=== PATIENT | female | born 1950 | race Caucasian/White ===

== ENCOUNTER 2017-01-25 00:36 | Inpatient (IN) | payer MEDICARE ==
[2017-01-25] VITALS (16 sets, daily range): BP systolic 168–231; BP diastolic 78–113
[~2017-01-25] VITALS: Ht 157.5 cm; Wt 82.7 kg
[~2017-01-25 00:36] MED LIST: AMLODIPINE5 MG PO; LISINOPRIL/HCTZ1 TA1 PO; LOPRESSOR25 MG PO; NORCO 325 MG-51 TAB PO; NORCO 5-325 TA1 EACH PO
[2017-01-25 00:59] LABS: BASO # 0.1 10*3/uL (0.0-0.1); BASO % 0.4 % (0.0-1.0); EOS # 0.1 10*3/uL (0.0-0.4); EOS % 0.5 % (1.0-4.0); HEMATOCRIT 46.2 % (37.0-47.0); HEMOGLOBIN 15.1 g/dl (12.0-16.0); LYMPH # 3.2 10*3/uL (1.3-4.4); LYMPH % 26.1 % (27.0-41.0); MEAN CELL VOLUME 89.2 fl (81.0-99.0); MEAN CORPUSCULAR HGB 29.2 pg (27.0-31.0); MEAN CORPUSCULAR HGB CONC 32.7 g/dl (33.0-37.0); MEAN PLATELET VOLUME 11.7 fl (9.6-12.3); MONO # 0.6 10*3/uL (0.1-1.0); MONO % 4.7 % (3.0-9.0); NEUT # 8.3 10*3/uL (2.3-7.9); NEUT % 68.1 % (47.0-73.0); PLATELET COUNT AUTOMATED 144 10*3/uL (130-400); RED BLOOD COUNT 5.18 10*6/uL (4.10-5.10); RED CELL DISTRI WIDTH 14.2 % (0-14.5); WHITE BLOOD COUNT 12.2 10*3/uL (4.8-10.8)
[2017-01-25 01:15] LABS: ALBUMIN 3.7 gm/dl (3.1-4.5); ALKALINE PHOSPHATASE 79 U/L (45-117); BUN 14 mg/dl (7-24); CARBON DIOXIDE 26 mmol/L (21-32); CHLORIDE 107 mmol/L (98-107); CPK 76 U/L (26-192); EST GLOM FILT AFRICAN AMERICAN > 60 ml/min; GLUCOSE 137 mg/dL (65-99); LDH 220 U/L (84-246); MAGNESIUM 1.7 mg/dL (1.5-2.1); POTASSIUM 3.6 mmol/L (3.5-5.1); SGOT/AST 56 IU/L (3-35); SGPT/ALT 92 U/L (12-78); SODIUM 145 mmol/L (136-145); TOTAL PROTEIN 7.7 gm/dL (6.4-8.2); TROPONIN I 0.029 ng/ml (<0.045)
[2017-01-25 01:20] LABS: BILIRUBIN, TOTAL 0.4 mg/dl (0.2-1.0)
[2017-01-25 01:30] LABS: PROTHROMBIN TIME 10.7 SECONDS (9.0-12.4)
[2017-01-25 06:09] LABS: BASO # 0.1 10*3/uL (0.0-0.1); BASO % 0.5 % (0.0-1.0); EOS % 0.2 % (1.0-4.0); HEMATOCRIT 43.4 % (37.0-47.0); HEMOGLOBIN 14.4 g/dl (12.0-16.0); LYMPH # 2.1 10*3/uL (1.3-4.4); LYMPH % 19.4 % (27.0-41.0); MEAN CELL VOLUME 88.9 fl (81.0-99.0); MEAN CORPUSCULAR HGB 29.5 pg (27.0-31.0); MEAN CORPUSCULAR HGB CONC 33.2 g/dl (33.0-37.0); MEAN PLATELET VOLUME 11.7 fl (9.6-12.3); MONO # 0.5 10*3/uL (0.1-1.0); MONO % 4.4 % (3.0-9.0); NEUT # 8.2 10*3/uL (2.3-7.9); NEUT % 75.1 % (47.0-73.0); PLATELET COUNT AUTOMATED 131 10*3/uL (130-400); RED BLOOD COUNT 4.88 10*6/uL (4.10-5.10); RED CELL DISTRI WIDTH 14.3 % (0-14.5)
[2017-01-25 06:24] LABS: BUN 11 mg/dl (7-24); CARBON DIOXIDE 29 mmol/L (21-32); CHLORIDE 107 mmol/L (98-107); EST GLOM FILT AFRICAN AMERICAN > 60 ml/min; GLUCOSE 120 mg/dL (65-99); MAGNESIUM 1.6 mg/dL (1.5-2.1); POTASSIUM 3.5 mmol/L (3.5-5.1); SODIUM 143 mmol/L (136-145)
[2017-01-25 06:28] LABS: CKMB 1.9 ng/ml (0.5-3.6); TROPONIN I 0.043 ng/ml (<0.045)
[2017-01-25 06:29] LABS: CHOLESTEROL 153 mg/dL (<200); FREE T4 1.08 ng/dl (0.76-1.46); HDL CHOLESTEROL 56 mg/dl (40-60); LDL CHOLESTEROL 84 mg/dL (9-159); PHOSPHOROUS 2.6 mg/dL (2.5-4.9); TRIGLYCERIDES 65 mg/dl (<150); VLDL CHOLESTEROL 13 mg/dL (6-40)
[2017-01-25 06:35] LABS: INTERNATIONAL NORM RATIO 1.1 (2.0-3.5); PROTHROMBIN TIME 11.3 SECONDS (9.0-12.4); THYROID STIM HORMONE (HS) 0.568 uIU/ml (0.358-4.75)
[2017-01-25 08:12] LABS: VITAMIN D, 25-HYDROXY 13.9 ng/mL (30-100)
[2017-01-25 08:46] LABS: FOLIC ACID > 24.00 ng/mL (>5.38)
[2017-01-25 12:09] LABS: CKMB 1.9 ng/ml (0.5-3.6)
[2017-01-25 12:12] LABS: TROPONIN I 0.052 ng/ml (<0.045)
[2017-01-25 16:10] LABS: BASO % 0.4 % (0.0-1.0); EOS % 0.2 % (1.0-4.0); HEMATOCRIT 41.6 % (37.0-47.0); HEMOGLOBIN 13.9 g/dl (12.0-16.0); LYMPH # 2.2 10*3/uL (1.3-4.4); LYMPH % 22.2 % (27.0-41.0); MEAN CELL VOLUME 88.1 fl (81.0-99.0); MEAN CORPUSCULAR HGB 29.4 pg (27.0-31.0); MEAN CORPUSCULAR HGB CONC 33.4 g/dl (33.0-37.0); MEAN PLATELET VOLUME 11.5 fl (9.6-12.3); MONO # 0.6 10*3/uL (0.1-1.0); MONO % 6.4 % (3.0-9.0); NEUT % 70.5 % (47.0-73.0); PLATELET COUNT AUTOMATED 130 10*3/uL (130-400); RED BLOOD COUNT 4.72 10*6/uL (4.10-5.10); RED CELL DISTRI WIDTH 14.4 % (0-14.5); WHITE BLOOD COUNT 9.9 10*3/uL (4.8-10.8)
[2017-01-25 16:25] LABS: ALBUMIN 3.3 gm/dl (3.1-4.5); ALKALINE PHOSPHATASE 70 U/L (45-117); BILIRUBIN, TOTAL 0.6 mg/dl (0.2-1.0); BUN 12 mg/dl (7-24); CARBON DIOXIDE 26 mmol/L (21-32); CHLORIDE 108 mmol/L (98-107); EST GLOM FILT AFRICAN AMERICAN > 60 ml/min; GLUCOSE 107 mg/dL (65-99); POTASSIUM 3.3 mmol/L (3.5-5.1); SGOT/AST 30 IU/L (3-35); SGPT/ALT 69 U/L (12-78); SODIUM 143 mmol/L (136-145)
[2017-01-25 18:29] LABS: CKMB 1.6 ng/ml (0.5-3.6); TROPONIN I 0.044 ng/ml (<0.045)
[2017-01-26] VITALS: BP 176/81
[2017-01-26 03:57] VITALS: BP 164/80
[2017-01-26 08:00] VITALS: BP 156/81; BP 170/80
[2017-01-26 12:00] VITALS: BP 150/82
[2017-01-26 16:00] VITALS: BP 160/84
[2017-01-26 21:00] VITALS: BP 188/82
[2017-01-27] VITALS: BP 180/66
[2017-01-27 08:00] VITALS: BP 156/70
[2017-01-27] MEDS ORDERED: DOXYCYCLINE100 M3 PO (10:27)
[2017-01-27] MEDS ORDERED: D-1000 185 MG-11 TAB PO (10:27)
[2017-01-27] MEDS ORDERED: PREDNISONE10 MG PO (10:27)
[2017-01-27] MEDS ORDERED: LISINOPRIL20 MG PO (10:27)
== END 2017-01-27 10:46 | disposition home or self-care (01) | DRG 871 ==
LOC: ED 00:36 → EDHOLD 03:44 → 4E 03:44
PROVIDERS: Internal Medicine; Physician Assistant
DX: A41.9 Sepsis, unspecified organism (principal); J18.9 Pneumonia, unspecified organism; J96.01 Acute respiratory failure with hypoxia; I16.1 Hypertensive emergency; I10 Essential (primary) hypertension; E55.9 Vitamin D deficiency, unspecified; R59.1 Generalized enlarged lymph nodes; F17.200 Nicotine dependence, unspecified, uncomplicated; Z60.2 Problems related to living alone; R00.0 Tachycardia, unspecified; D72.829 Elevated white blood cell count, unspecified; E66.09 Other obesity due to excess calories; Z90.710 Acquired absence of both cervix and uterus; Z85.41 Personal history of malignant neoplasm of cervix uteri; Z71.6 Tobacco abuse counseling; Z72.89 Other problems related to lifestyle; Z82.49 Family history of ischemic heart disease and other diseases of the circulatory system; Z68.34 Body mass index [BMI] 34.0-34.9, adult; Z80.9 Family history of malignant neoplasm, unspecified

== ENCOUNTER → 2017-06-01 | Outpatient (CLI) | payer MEDICARE ==
[~2017-06-01] MED LIST changes: +D-1000 185 MG-11 TAB PO; +DOXYCYCLINE100 M3 PO; +LISINOPRIL20 MG PO; +PREDNISONE10 MG PO
== END | disposition home or self-care (01) ==
LOC: US 10:30
DX: I10 Essential (primary) hypertension (principal)

== ENCOUNTER → 2017-07-01 | Outpatient (CLI) | payer MEDICARE ==
[~2017-07-01] MED LIST changes: +AMLODIPINE BESY10 MG PO; +CARVEDILOL6.25 MG PO; +LOSARTAN-HCTZ1 EAC2 PO
== END | disposition home or self-care (01) ==
LOC: MAMMO 06-04 10:20
DX: Z12.31 Encounter for screening mammogram for malignant neoplasm of breast (principal)

== ENCOUNTER → 2017-07-03 | Day surgery (SDC) | payer MEDICARE ==
[~2017-07-03] VITALS: Ht 157.4 cm; Wt 83.9 kg
--- NOTE | ~2017-07-03 | PROC NOTE ---
[place], [place] PROCEDURE NOTE NAME: [facility] [id number] UNIT #: [id number] ROOM: DOCTOR: ARMANDO SHAFFER MD BIRTHDATE: [birth year] DOS: 07/03/2017 PREOPERATIVE DIAGNOSIS: Positive cologuard test. POSTOPERATIVE DIAGNOSIS: Colon polyps x 2 (15 cm, 30 cm). PROCEDURE: Colonoscopy with polypectomy x 2. ENDOSCOPIST: Armando Shaffer MD MEDICAL LOGISTICS SPECIALIST: RUTH ANN. ANESTHESIA: MAC. INDICATIONS: This is a 66-year-old lady who had a positive cologuard done as an outpatient, who is here for the above-mentioned procedure. The procedure and its complications were explained to the patient in detail preoperatively. Complications that were discussed included but were not limited to bleeding, missed lesions, colon perforation and she agreed to proceed. DESCRIPTION OF PROCEDURE: After identifying the patient, the patient was brought to the endoscopy suite and placed in the left lateral position. After IV sedation was administered, a timeout procedure was called and a digital rectal exam was performed. This was within normal limits. An adult colonoscope was now introduced into the anal canal and advanced sequentially into the rectum, descending colon, ascending colon, transverse colon and up to the cecum. At which point, the scope was then withdrawn. Total withdrawal time was approximately 8 minutes and 30 seconds. During the procedure withdrawal, there were 2 polyps that were polypectomized with the help of a snare at 30 cm and at 15 cm and these 2 polyps were sent for histopathological diagnosis. The biopsy sites were again visualized and there was no bleeding seen. The scope was then withdrawn. The patient was taken to the recovery room in stable fashion. There were no complications. Based on these findings, the patient is recommended to have another colonoscopy in the next 1-3 years or sooner if she has any new symptoms. Armando Shaffer MD CM:PROCNOTE:PROCEDURE NOTE [id number] ARMANDO SHAFFER MD
[2017-07-03 08:00] VITALS: BP 180/69
[2017-07-03 09:24] VITALS: BP 117/64
[2017-07-03 09:39] VITALS: BP 142/64
[2017-07-03 09:54] VITALS: BP 161/77
== END | disposition home or self-care (01) ==
LOC: SDC 06-30 08:00
DX: D12.8 Benign neoplasm of rectum (principal); I10 Essential (primary) hypertension; Z82.49 Family history of ischemic heart disease and other diseases of the circulatory system; Z90.710 Acquired absence of both cervix and uterus; Z90.49 Acquired absence of other specified parts of digestive tract; F17.200 Nicotine dependence, unspecified, uncomplicated

== ENCOUNTER → 2018-02-11 | Outpatient (CLI) | payer MEDICARE | END | disposition home or self-care (01) | LOC: RAD 15:21 | DX: M54.5 Low back pain (principal) ==

== ENCOUNTER 2018-12-11 10:01 | Emergency (ER) | payer MEDICARE ==
[~2018-12-11] VITALS: Ht 157.4 cm; Wt 81.6 kg
[2018-12-11] MEDS ORDERED: NORCO 5-325 TA1 EACH PO (11:56)
[2018-12-11] MEDS ORDERED: WALKER (12:08)
== END 2018-12-11 12:04 | disposition home or self-care (01) ==
LOC: ED 10:01
DX: S82.832A Other fracture of upper and lower end of left fibula, initial encounter for closed fracture (principal); M25.552 Pain in left hip; F17.200 Nicotine dependence, unspecified, uncomplicated; I10 Essential (primary) hypertension; E66.9 Obesity, unspecified; Z79.899 Other long term (current) drug therapy; W01.0XXA Fall on same level from slipping, tripping and stumbling without subsequent striking against object, initial encounter; Y93.01 Activity, walking, marching and hiking; Y92.89 Other specified places as the place of occurrence of the external cause; Y99.8 Other external cause status

== ENCOUNTER → 2018-12-31 | Outpatient (CLI) | payer MEDICARE ==
[~2018-12-31] MED LIST changes: +WALKER
== END | disposition home or self-care (01) ==
LOC: ORTHO 00:56
DX: S82.832D Other fracture of upper and lower end of left fibula, subsequent encounter for closed fracture with routine healing (principal); X58.XXXD Exposure to other specified factors, subsequent encounter

== ENCOUNTER → 2019-05-05 | Outpatient (CLI) | payer MEDICARE | END | disposition home or self-care (01) | LOC: MRI 09:29 | DX: M65.872 Other synovitis and tenosynovitis, left ankle and foot (principal); M79.9 Soft tissue disorder, unspecified; M77.9 Enthesopathy, unspecified ==

== ENCOUNTER → 2019-11-26 | Outpatient (CLI) | payer MEDICARE ==
[2019-11-26 14:23] LABS: BASO # 0.1 10*3/uL (0.0-0.1); BASO % 0.6 % (0.0-1.0); EOS # 0.2 10*3/uL (0.0-0.4); EOS % 2.1 % (1.0-4.0); HEMATOCRIT 47.9 % (37.0-47.0); LYMPH # 2.9 10*3/uL (1.3-4.4); LYMPH % 30.8 % (27.0-41.0); MEAN CELL VOLUME 90.5 fl (81.0-99.0); MEAN CORPUSCULAR HGB 29.7 pg (27.0-31.0); MEAN CORPUSCULAR HGB CONC 32.8 g/dl (33.0-37.0); MEAN PLATELET VOLUME 11.4 fl (9.6-12.3); MONO # 0.8 10*3/uL (0.1-1.0); MONO % 8.4 % (3.0-9.0); NEUT # 5.4 10*3/uL (2.3-7.9); NEUT % 57.8 % (47.0-73.0); PLATELET COUNT AUTOMATED 190 10*3/uL (130-400); RED BLOOD COUNT 5.29 10*6/uL (4.10-5.10); RED CELL DISTRI WIDTH 13.5 % (0-14.5); WHITE BLOOD COUNT 9.4 10*3/uL (4.8-10.8)
[2019-11-26 14:31] LABS: BILIRUBIN NEGATIVE (NEGATIVE); BLOOD NEGATIVE (NEGATIVE); CLARITY SL CLOUDY (CLEAR); COLOR YELLOW (YELLOW); GLUCOSE NEGATIVE (NEGATIVE); KETONE NEGATIVE (NEGATIVE); LEUKO ESTERASE NEGATIVE (NEGATIVE); NITRITE NEGATIVE (NEGATIVE); UROBILINOGEN 0.2 E.U./dl (0.2-1.0)
[2019-11-26 14:34] LABS: FINE GRANULAR CAST 0-2
[2019-11-26 14:35] LABS: RBC 0-2 rbc/hpf (0-2)
[2019-11-26 14:35] LABS: ACT PARTIAL THROMBO TIME 26.9 SECONDS (20.0-32.1); INTERNATIONAL NORM RATIO 0.9 (2.0-3.5)
[2019-11-26 14:36] LABS: BACTERIA 3+
[2019-11-26 14:39] LABS: ALBUMIN 3.6 gm/dl (3.1-4.5); CREATININE 1.3 mg/dL (0.55-1.02); POTASSIUM 4.3 mmol/L (3.5-5.1); TOTAL PROTEIN 7.7 gm/dL (6.4-8.2)
== END | disposition home or self-care (01) ==
LOC: LAB 13:45
PROVIDERS: Orthopaedic Surgery
DX: Z01.812 Encounter for preprocedural laboratory examination (principal); R06.02 Shortness of breath; M19.90 Unspecified osteoarthritis, unspecified site; I10 Essential (primary) hypertension; Z79.899 Other long term (current) drug therapy

== ENCOUNTER → 2020-03-19 | Outpatient (CLI) | payer MEDICARE | END | disposition home or self-care (01) | LOC: MAMMO 13:31 | DX: Z12.31 Encounter for screening mammogram for malignant neoplasm of breast (principal) ==

== ENCOUNTER → 2020-09-03 | Outpatient (CLI) | payer MEDICARE | END | disposition home or self-care (01) | LOC: RAD 11:32 | PROVIDERS: ATTEND Physician Assistant | DX: J44.9 Chronic obstructive pulmonary disease, unspecified (principal); K21.9 Gastro-esophageal reflux disease without esophagitis; F17.210 Nicotine dependence, cigarettes, uncomplicated ==

== ENCOUNTER → 2020-09-07 | Outpatient (CLI) | payer MEDICARE ==
[2020-09-07 14:35] LABS: CREATININE 0.89 mg/dL (0.55-1.02)
== END | disposition home or self-care (01) ==
LOC: LAB 13:43 → CT 14:00
PROVIDERS: ATTEND Physician Assistant
DX: R93.89 Abnormal findings on diagnostic imaging of other specified body structures (principal); Z79.899 Other long term (current) drug therapy

== ENCOUNTER → 2020-09-17 | Outpatient (CLI) | payer MEDICARE | END | disposition home or self-care (01) | LOC: MRI 08:40 | PROVIDERS: ATTEND Physician Assistant | DX: R16.0 Hepatomegaly, not elsewhere classified (principal); J98.4 Other disorders of lung ==

== ENCOUNTER → 2020-11-29 | Outpatient (CLI) | payer MEDICARE | END | disposition home or self-care (01) | LOC: CT 13:00 | PROVIDERS: ATTEND Internal Medicine Critical Care Medicine | DX: J98.11 Atelectasis (principal); R91.1 Solitary pulmonary nodule; J41.1 Mucopurulent chronic bronchitis; Z87.891 Personal history of nicotine dependence; Z23 Encounter for immunization ==

== ENCOUNTER → 2020-12-26 | Outpatient (CLI) | payer MEDICARE | END | disposition home or self-care (01) | LOC: RAD 10:03 | PROVIDERS: ATTEND Orthopaedic Surgery | DX: Z01.818 Encounter for other preprocedural examination (principal); I25.10 Atherosclerotic heart disease of native coronary artery without angina pectoris; I10 Essential (primary) hypertension; M19.90 Unspecified osteoarthritis, unspecified site ==

== ENCOUNTER → 2021-03-27 | Outpatient (CLI) | payer MEDICARE | END | disposition home or self-care (01) | LOC: MAMMO 11:22 | PROVIDERS: ATTEND Physician Assistant | DX: Z12.31 Encounter for screening mammogram for malignant neoplasm of breast (principal) ==

== ENCOUNTER → 2021-04-10 | Outpatient (CLI) | payer MEDICARE | END | disposition home or self-care (01) | LOC: MAMMO 08:55 | PROVIDERS: ATTEND Physician Assistant | DX: R92.8 Other abnormal and inconclusive findings on diagnostic imaging of breast (principal) ==

== ENCOUNTER → 2021-05-07 | Outpatient (CLI) | payer MEDICARE ==
[2021-05-07 12:51] LABS: ACT PARTIAL THROMBO TIME 25.1 SECONDS (20.0-32.1)
== END | disposition home or self-care (01) ==
LOC: SDC 00:58 → MAMMO 13:30
PROVIDERS: ATTEND Physician Assistant
DX: R92.8 Other abnormal and inconclusive findings on diagnostic imaging of breast (principal); I10 Essential (primary) hypertension; M19.90 Unspecified osteoarthritis, unspecified site; K21.9 Gastro-esophageal reflux disease without esophagitis; F17.210 Nicotine dependence, cigarettes, uncomplicated; J98.4 Other disorders of lung; J44.9 Chronic obstructive pulmonary disease, unspecified; Z90.710 Acquired absence of both cervix and uterus; Z96.649 Presence of unspecified artificial hip joint; Z96.659 Presence of unspecified artificial knee joint; Z98.890 Other specified postprocedural states; Z79.899 Other long term (current) drug therapy; Z20.822 Contact with and (suspected) exposure to COVID-19

== ENCOUNTER → 2021-05-15 | Outpatient (CLI) | payer MEDICARE ==
[2021-05-15 14:38] LABS: CREATININE 0.88 mg/dL (0.55-1.02)
== END | disposition home or self-care (01) ==
LOC: LAB 14:03
PROVIDERS: ATTEND Surgery
DX: K21.9 Gastro-esophageal reflux disease without esophagitis (principal)

== ENCOUNTER → 2021-05-17 | Outpatient (CLI) | payer MEDICARE | LOC: CT 00:04 | PROVIDERS: ATTEND Surgery | DX: I70.8 Atherosclerosis of other arteries (principal); K21.9 Gastro-esophageal reflux disease without esophagitis; R10.9 Unspecified abdominal pain ==

== ENCOUNTER → 2021-06-13 | Day surgery (SDC) | payer MEDICARE ==
[~2021-06-13] VITALS: Ht 154.9 cm; Wt 90.7 kg
[2021-06-13 07:03] VITALS: BP 178/76
[2021-06-13 08:04] VITALS: BP 121/60
[2021-06-13 08:19] VITALS: BP 133/77
[2021-06-13 08:29] VITALS: BP 156/72
== END | disposition home or self-care (01) ==
LOC: SDC 06-10 08:00
PROVIDERS: ATTEND Surgery
DX: Z12.11 Encounter for screening for malignant neoplasm of colon (principal); D12.2 Benign neoplasm of ascending colon; D12.8 Benign neoplasm of rectum; K29.50 Unspecified chronic gastritis without bleeding; Z86.010 Personal history of colon polyps; K21.9 Gastro-esophageal reflux disease without esophagitis; I10 Essential (primary) hypertension; M19.90 Unspecified osteoarthritis, unspecified site; F17.210 Nicotine dependence, cigarettes, uncomplicated; Z90.710 Acquired absence of both cervix and uterus; Z79.899 Other long term (current) drug therapy; Z20.822 Contact with and (suspected) exposure to COVID-19

== ENCOUNTER → 2021-06-19 | Outpatient (CLI) | payer MEDICARE | END | disposition home or self-care (01) | LOC: CT 07:47 | PROVIDERS: ATTEND Physician Assistant | DX: J98.11 Atelectasis (principal); R91.1 Solitary pulmonary nodule; I25.10 Atherosclerotic heart disease of native coronary artery without angina pectoris; J84.89 Other specified interstitial pulmonary diseases ==

== ENCOUNTER → 2022-04-22 | Outpatient (CLI) | payer MEDICARE ==
[~2022-04-22] MED LIST changes: +APRESOLINE10 MG PO; +ASPIRIN ADULT L81 M2 PO; +ATORVASTATIN CA40 M1 PO; +COREG12.5 M1 PO; +Carafate1 GM PO; +DOXYCYCLINE HY100 M3 PO; +FUROSEMIDE40 MG PO; +LETROZOLE2.5 M2 PO; +LISINOPRIL10 M1 PO; +OXYBUTYNIN5 MG PO; +PACERONE400 MG PO; +POTASSIUM CHLO20 ME4 PO
== END | disposition home or self-care (01) ==
LOC: RESCLI 01:10
PROVIDERS: ATTEND Internal Medicine
DX: J44.9 Chronic obstructive pulmonary disease, unspecified (principal); E55.9 Vitamin D deficiency, unspecified; C50.919 Malignant neoplasm of unspecified site of unspecified female breast; I48.91 Unspecified atrial fibrillation; I10 Essential (primary) hypertension; I21.3 ST elevation (STEMI) myocardial infarction of unspecified site; N39.3 Stress incontinence (female) (male); K21.9 Gastro-esophageal reflux disease without esophagitis; Z87.891 Personal history of nicotine dependence; Z90.710 Acquired absence of both cervix and uterus; Z98.890 Other specified postprocedural states; Z79.899 Other long term (current) drug therapy; Z79.01 Long term (current) use of anticoagulants

== ENCOUNTER → 2022-09-02 | Outpatient (CLI) | payer MEDICARE | END | disposition home or self-care (01) | LOC: LAB 09:16 | PROVIDERS: ATTEND Surgery | DX: K46.9 Unspecified abdominal hernia without obstruction or gangrene (principal) ==

== ENCOUNTER → 2022-09-04 | Outpatient (CLI) | payer MEDICARE | END | disposition home or self-care (01) | LOC: CT 00:54 | PROVIDERS: ATTEND Surgery | DX: K46.9 Unspecified abdominal hernia without obstruction or gangrene (principal); J18.9 Pneumonia, unspecified organism; I25.10 Atherosclerotic heart disease of native coronary artery without angina pectoris; K76.0 Fatty (change of) liver, not elsewhere classified; N20.0 Calculus of kidney; K76.89 Other specified diseases of liver; E27.9 Disorder of adrenal gland, unspecified ==

== ENCOUNTER 2022-11-19 20:02 | Emergency (ER) | payer MEDICARE ==
[~2022-11-19] VITALS: Ht 154.9 cm; Wt 61.2 kg
[2022-11-19] MEDS ORDERED: XARE20MG PO (20:14)
== END 2022-11-19 21:31 | disposition home or self-care (01) ==
LOC: ED 20:02
DX: S70.12XA Contusion of left thigh, initial encounter (principal); J44.9 Chronic obstructive pulmonary disease, unspecified; I25.2 Old myocardial infarction; K21.9 Gastro-esophageal reflux disease without esophagitis; F41.9 Anxiety disorder, unspecified; F32.A Depression, unspecified; I10 Essential (primary) hypertension; I48.91 Unspecified atrial fibrillation; Z96.651 Presence of right artificial knee joint; Z90.49 Acquired absence of other specified parts of digestive tract; Z90.710 Acquired absence of both cervix and uterus; Z98.890 Other specified postprocedural states; F17.200 Nicotine dependence, unspecified, uncomplicated; W22.8XXA Striking against or struck by other objects, initial encounter; Y93.89 Activity, other specified; Y92.89 Other specified places as the place of occurrence of the external cause; Y99.8 Other external cause status

== ENCOUNTER 2022-12-08 12:25 | Emergency (ER) | payer MEDICARE ==
[~2022-12-08] VITALS: Ht 154.9 cm; Wt 61.2 kg
[~2022-12-08 12:25] MED LIST changes: +XARE20MG PO
[2022-12-08] MEDS ORDERED: AMOX-CLAV 875-1 EACH PO (14:11)
== END 2022-12-08 14:16 | disposition home or self-care (01) ==
LOC: ED 12:25
DX: S01.112A Laceration without foreign body of left eyelid and periocular area, initial encounter (principal); I10 Essential (primary) hypertension; J44.9 Chronic obstructive pulmonary disease, unspecified; I25.2 Old myocardial infarction; K21.9 Gastro-esophageal reflux disease without esophagitis; F41.9 Anxiety disorder, unspecified; Z96.651 Presence of right artificial knee joint; Z90.12 Acquired absence of left breast and nipple; Z90.49 Acquired absence of other specified parts of digestive tract; Z90.710 Acquired absence of both cervix and uterus; Z98.890 Other specified postprocedural states; F17.200 Nicotine dependence, unspecified, uncomplicated; W55.03XA Scratched by cat, initial encounter; Y93.89 Activity, other specified; Y92.89 Other specified places as the place of occurrence of the external cause; Y99.8 Other external cause status

== ENCOUNTER → 2023-01-06 | Outpatient (CLI) | payer MEDICARE ==
[~2023-01-06] MED LIST changes: +AMOX-CLAV 875-1 EACH PO
== END | disposition home or self-care (01) ==
LOC: CT 01:23
PROVIDERS: ATTEND Surgery
DX: K43.9 Ventral hernia without obstruction or gangrene (principal); M48.061 Spinal stenosis, lumbar region without neurogenic claudication; N20.0 Calculus of kidney; E27.9 Disorder of adrenal gland, unspecified; M47.817 Spondylosis without myelopathy or radiculopathy, lumbosacral region

== ENCOUNTER → 2023-01-19 | Day surgery (SDC) | payer MEDICARE ==
[~2023-01-19] VITALS: Ht 152.4 cm; Wt 61.2 kg
[2023-01-19 08:00] VITALS: BP 187/68
[2023-01-19 08:46] VITALS: BP 164/66
[2023-01-19 09:01] VITALS: BP 150/43
[2023-01-19 09:16] VITALS: BP 162/56
== END ==
LOC: SDC 01-15 12:30
PROVIDERS: ATTEND Surgery
DX: R63.4 Abnormal weight loss (principal); D12.8 Benign neoplasm of rectum; I10 Essential (primary) hypertension; K21.9 Gastro-esophageal reflux disease without esophagitis; F32.A Depression, unspecified; F41.9 Anxiety disorder, unspecified; J44.9 Chronic obstructive pulmonary disease, unspecified; Z86.010 Personal history of colon polyps; Z98.818 Other dental procedure status; Z98.890 Other specified postprocedural states

== ENCOUNTER → 2023-03-09 | Outpatient (CLI) | payer MEDICARE | END | disposition home or self-care (01) | LOC: RAD 11:27 | PROVIDERS: ATTEND Physician Assistant | DX: Z78.0 Asymptomatic menopausal state (principal); Z96.642 Presence of left artificial hip joint ==

== ENCOUNTER → 2023-03-23 | Outpatient (CLI) | payer MEDICARE | END | disposition home or self-care (01) | LOC: RAD 01:12 | PROVIDERS: ATTEND Physician Assistant | DX: R16.0 Hepatomegaly, not elsewhere classified (principal); M85.88 Other specified disorders of bone density and structure, other site; M85.851 Other specified disorders of bone density and structure, right thigh ==

== ENCOUNTER 2023-04-02 23:01 | Emergency (ER) | payer MEDICARE ==
[~2023-04-02] VITALS: Ht 152.4 cm; Wt 55.3 kg
[2023-04-02 23:22] LABS: BASO % 0.3 % (0.0-1.0); EOS % 0.3 % (1.0-4.0); HEMATOCRIT 40.1 % (37.0-47.0); LYMPH # 2.3 10*3/uL (1.3-4.4); LYMPH % 20.4 % (27.0-41.0); MEAN CORPUSCULAR HGB 28.6 pg (27.0-31.0); MEAN CORPUSCULAR HGB CONC 33.7 g/dl (33.0-37.0); MEAN PLATELET VOLUME 10.6 fl (9.6-12.3); MONO # 0.8 10*3/uL (0.1-1.0); MONO % 6.9 % (3.0-9.0); NEUT # 8.3 10*3/uL (2.3-7.9); NEUT % 71.8 % (47.0-73.0); PLATELET COUNT AUTOMATED 186 10*3/uL (130-400); RED BLOOD COUNT 4.72 10*6/uL (4.10-5.10); RED CELL DISTRI WIDTH 15.3 % (0-14.5); WHITE BLOOD COUNT 11.5 10*3/uL (4.8-10.8)
[2023-04-02 23:45] LABS: ALKALINE PHOSPHATASE 75 U/L (46-116); BUN 13 mg/dl (9-23); CHLORIDE 102 mmol/L (98-107); SGPT/ALT 100 U/L (10-49); TOTAL PROTEIN 6.8 gm/dL (6.0-8.0)
[2023-04-03] MEDS ORDERED: LEVOFLOXACIN750 M2 PO (01:43)
== END 2023-04-03 02:10 | disposition home or self-care (01) ==
LOC: ED 23:01
PROVIDERS: Internal Medicine
DX: J18.9 Pneumonia, unspecified organism (principal); R79.89 Other specified abnormal findings of blood chemistry; E87.6 Hypokalemia; E83.42 Hypomagnesemia; E44.1 Mild protein-calorie malnutrition; I12.9 Hypertensive chronic kidney disease with stage 1 through stage 4 chronic kidney disease, or unspecified chronic kidney disease; N18.31 Chronic kidney disease, stage 3a; J44.9 Chronic obstructive pulmonary disease, unspecified; I25.2 Old myocardial infarction; K21.9 Gastro-esophageal reflux disease without esophagitis; F41.9 Anxiety disorder, unspecified; Z96.651 Presence of right artificial knee joint; Z68.1 Body mass index [BMI] 19.9 or less, adult; Z90.49 Acquired absence of other specified parts of digestive tract; Z90.710 Acquired absence of both cervix and uterus; Z98.890 Other specified postprocedural states; F17.200 Nicotine dependence, unspecified, uncomplicated

== ENCOUNTER → 2023-04-09 | Outpatient (CLI) | payer MEDICARE ==
[~2023-04-09] MED LIST changes: +LEVOFLOXACIN750 M2 PO
== END | disposition home or self-care (01) ==
LOC: RESCLI 00:14
PROVIDERS: ATTEND Internal Medicine
DX: J98.4 Other disorders of lung (principal); I10 Essential (primary) hypertension; I48.91 Unspecified atrial fibrillation; N39.3 Stress incontinence (female) (male); K46.9 Unspecified abdominal hernia without obstruction or gangrene; I21.3 ST elevation (STEMI) myocardial infarction of unspecified site; R30.0 Dysuria; J18.9 Pneumonia, unspecified organism; I70.0 Atherosclerosis of aorta; Z98.890 Other specified postprocedural states; Z82.49 Family history of ischemic heart disease and other diseases of the circulatory system; Z79.02 Long term (current) use of antithrombotics/antiplatelets; Z79.899 Other long term (current) drug therapy

== ENCOUNTER → 2023-08-17 | Outpatient (CLI) | payer MEDICARE | END | disposition home or self-care (01) | LOC: CT 08-14 10:00 | PROVIDERS: ATTEND Physician Assistant | DX: J43.9 Emphysema, unspecified (principal); R91.1 Solitary pulmonary nodule; F17.211 Nicotine dependence, cigarettes, in remission ==

== ENCOUNTER → 2023-12-22 | Outpatient (CLI) | payer MEDICARE ==
[~2023-12-22] MED LIST changes: +IOHEXOL 300 MG/ML 100 ML VIAL IV ONE
== END ==
LOC: CT 12-16 08:00 → MAMMO 12-16 10:00 → CT 01:20
PROVIDERS: ATTEND Physician Assistant
DX: N20.0 Calculus of kidney (principal); C50.919 Malignant neoplasm of unspecified site of unspecified female breast; I48.91 Unspecified atrial fibrillation; J44.9 Chronic obstructive pulmonary disease, unspecified; R19.00 Intra-abdominal and pelvic swelling, mass and lump, unspecified site; R19.4 Change in bowel habit; R11.0 Nausea; I25.10 Atherosclerotic heart disease of native coronary artery without angina pectoris; K80.20 Calculus of gallbladder without cholecystitis without obstruction; E27.8 Other specified disorders of adrenal gland; R91.8 Other nonspecific abnormal finding of lung field; K76.0 Fatty (change of) liver, not elsewhere classified; Z90.710 Acquired absence of both cervix and uterus; Z85.3 Personal history of malignant neoplasm of breast

== ENCOUNTER → 2023-12-30 | Outpatient (CLI) | payer MEDICARE ==
[~2023-12-30] MED LIST changes: -IOHEXOL 300 MG/ML 100 ML VIAL IV ONE
== END | disposition home or self-care (01) ==
LOC: MAMMO 01:25
PROVIDERS: ATTEND Physician Assistant
DX: C50.919 Malignant neoplasm of unspecified site of unspecified female breast (principal); R92.1 Mammographic calcification found on diagnostic imaging of breast

== ENCOUNTER → 2024-01-21 | Outpatient (CLI) | payer MEDICARE | END | disposition home or self-care (01) | LOC: US 02:45 | PROVIDERS: ATTEND Physician Assistant | DX: E04.2 Nontoxic multinodular goiter (principal) ==

== ENCOUNTER → 2024-02-17 | Outpatient (CLI) | payer MEDICARE ==
[2024-02-17 10:57] LABS: ACT PARTIAL THROMBO TIME 27.7 SECONDS (20.0-32.1)
== END | disposition home or self-care (01) ==
LOC: SDC 11:00 → EDSTATUS 11:00
PROVIDERS: Radiology Diagnostic Radiology; ATTEND Physician Assistant
DX: E04.1 Nontoxic single thyroid nodule (principal)

== ENCOUNTER 2024-04-07 10:07 | Emergency (ER) | payer MEDICARE ==
[~2024-04-07] VITALS: Ht 154.9 cm; Wt 61.4 kg
[~2024-04-07 10:07] MED LIST changes: -ASPIRIN ADULT L81 M1 PO; -Avapro300 MG PO; -CELEXA10 MG PO; -HYDROCHLOROTHIA25 M1 PO; -IMDUR SA30 MG PO; -POTASSIUM CHLO10 ME5 PO; -SYMB160 INH
[2024-04-07] MEDS ORDERED: POTASSIUM CHLO10 ME5 PO (10:34)
[2024-04-07] MEDS ORDERED: SYMB160 INH (10:35)
[2024-04-07] MEDS ORDERED: Avapro300 MG PO (10:37)
[2024-04-07] MEDS ORDERED: ASPIRIN ADULT L81 M1 PO (10:37)
[2024-04-07] MEDS ORDERED: HYDROCHLOROTHIA25 M1 PO (10:39)
[2024-04-07] MEDS ORDERED: IMDUR SA30 MG PO (10:40)
[2024-04-07] MEDS ORDERED: CELEXA10 MG PO (10:40)
[2024-04-07] MEDS ORDERED: hydrALAZINE hydrochloride 20 MG/ML VIAL IV ONE ×2 (11:05→13:10)
[2024-04-07 11:17] LABS: BASO % 0.5 % (0.0-1.0); EOS # 0.1 10*3/uL (0.0-0.4); HEMATOCRIT 42.3 % (37.0-47.0); LYMPH # 2.2 10*3/uL (1.3-4.4); LYMPH % 24.2 % (27.0-41.0); MEAN CELL VOLUME 85.8 fl (81.0-99.0); MEAN CORPUSCULAR HGB 27.6 pg (27.0-31.0); MEAN CORPUSCULAR HGB CONC 32.2 g/dl (33.0-37.0); MEAN PLATELET VOLUME 11.1 fl (9.6-12.3); MONO # 0.4 10*3/uL (0.1-1.0); NEUT # 6.1 10*3/uL (2.3-7.9); NEUT % 69.1 % (47.0-73.0); PLATELET COUNT AUTOMATED 198 10*3/uL (130-400); RED BLOOD COUNT 4.93 10*6/uL (4.10-5.10); WHITE BLOOD COUNT 8.9 10*3/uL (4.8-10.8)
[2024-04-07 11:33] LABS: BUN 16 mg/dl (9-23); CHLORIDE 105 mmol/L (98-107); POTASSIUM 3.5 mmol/L (3.4-5.1)
[2024-04-07 12:02] LABS: ACT PARTIAL THROMBO TIME 39.3 SECONDS (20.0-32.1)
== END 2024-04-07 15:19 | disposition home or self-care (01) ==
LOC: ED 10:07
PROVIDERS: Nurse Practitioner
DX: I12.9 Hypertensive chronic kidney disease with stage 1 through stage 4 chronic kidney disease, or unspecified chronic kidney disease (principal); J44.9 Chronic obstructive pulmonary disease, unspecified; I48.91 Unspecified atrial fibrillation; N18.30 Chronic kidney disease, stage 3 unspecified; F41.9 Anxiety disorder, unspecified; F32.A Depression, unspecified; I25.2 Old myocardial infarction; K21.9 Gastro-esophageal reflux disease without esophagitis; F17.290 Nicotine dependence, other tobacco product, uncomplicated; Z90.49 Acquired absence of other specified parts of digestive tract; Z98.890 Other specified postprocedural states; Z90.710 Acquired absence of both cervix and uterus; Z96.651 Presence of right artificial knee joint

== ENCOUNTER → 2024-04-07 | Outpatient (CLI) | payer MEDICARE ==
[~2024-04-07] MED LIST changes: +ASPIRIN ADULT L81 M1 PO; +Avapro300 MG PO; +CELEXA10 MG PO; +HYDROCHLOROTHIA25 M1 PO; +IMDUR SA30 MG PO; +POTASSIUM CHLO10 ME5 PO; +SYMB160 INH
== END | disposition home or self-care (01) ==
LOC: RESCLI 03:38
PROVIDERS: ATTEND Student in an Organized Health Care Education/Training Program
DX: I10 Essential (primary) hypertension (principal); I48.91 Unspecified atrial fibrillation; C50.919 Malignant neoplasm of unspecified site of unspecified female breast; J44.9 Chronic obstructive pulmonary disease, unspecified; E78.5 Hyperlipidemia, unspecified; I25.10 Atherosclerotic heart disease of native coronary artery without angina pectoris; N39.3 Stress incontinence (female) (male); F32.A Depression, unspecified; E04.1 Nontoxic single thyroid nodule; I25.2 Old myocardial infarction; Z98.890 Other specified postprocedural states; Z82.49 Family history of ischemic heart disease and other diseases of the circulatory system; Z87.891 Personal history of nicotine dependence; Z79.01 Long term (current) use of anticoagulants; Z90.710 Acquired absence of both cervix and uterus; Z79.899 Other long term (current) drug therapy

== ENCOUNTER 2024-07-17 14:24 | Emergency (ER) | payer MEDICARE ==
[~2024-07-17] VITALS: Ht 170.1 cm; Wt 77.1 kg
[~2024-07-17 14:24] MED LIST changes: +ASPIRIN ADULT L81 M1 PO; +Avapro300 MG PO; +CELEXA10 MG PO; +HYDROCHLOROTHIA25 M1 PO; +IMDUR SA30 MG PO; +POTASSIUM CHLO10 ME5 PO; +SYMB160 INH
[2024-07-17 15:09] LABS: BASO % 0.2 % (0.0-1.0); EOS # 0.1 10*3/uL (0.0-0.4); EOS % 0.6 % (1.0-4.0); HEMATOCRIT 42.9 % (37.0-47.0); MEAN CELL VOLUME 84.8 fl (81.0-99.0); MEAN CORPUSCULAR HGB 27.3 pg (27.0-31.0); MEAN CORPUSCULAR HGB CONC 32.2 g/dl (33.0-37.0); MEAN PLATELET VOLUME 10.4 fl (9.6-12.3); MONO # 0.6 10*3/uL (0.1-1.0); MONO % 4.7 % (3.0-9.0); NEUT # 11.4 10*3/uL (2.3-7.9); NEUT % 86.4 % (47.0-73.0); PLATELET COUNT AUTOMATED 181 10*3/uL (130-400); RED BLOOD COUNT 5.06 10*6/uL (4.10-5.10); RED CELL DISTRI WIDTH 15.9 % (0-14.5); WHITE BLOOD COUNT 13.2 10*3/uL (4.8-10.8)
[2024-07-17 15:20] LABS: ACT PARTIAL THROMBO TIME 36.2 SECONDS (20.0-32.1)
[2024-07-17 15:30] LABS: ALKALINE PHOSPHATASE 74 U/L (46-116); BUN 19 mg/dl (9-23); CHLORIDE 103 mmol/L (98-107); POTASSIUM 3.3 mmol/L (3.4-5.1); SGPT/ALT 16 U/L (5-49); TOTAL PROTEIN 7.5 gm/dL (6.0-8.0)
[2024-07-17 16:58] LABS: BILIRUBIN Negative (Negative); BLOOD Negative (Negative); CLARITY Cloudy (Clear); COLOR Yellow (Yellow); GLUCOSE Negative (Negative); KETONE Negative (Negative); LEUKO ESTERASE 1+ (Negative); NITRITE Negative (Negative); PH 5.5 (4.5-8.0); SPECIFIC GRAVITY 1.015 (1.001-1.030)
[2024-07-17 17:16] LABS: BACTERIA 2+; EPITHELIAL CELLS 16-20; MUCOUS TRACE
[2024-07-17] MEDS ORDERED: POTASSIUM CHLORIDE 20 MEQ TAB PO ONE (17:20)
== END 2024-07-17 17:49 | disposition home or self-care (01) ==
LOC: ED 14:24
PROVIDERS: Internal Medicine
DX: R55 Syncope and collapse (principal); E87.6 Hypokalemia; M25.561 Pain in right knee; R42 Dizziness and giddiness; H53.8 Other visual disturbances; R61 Generalized hyperhidrosis; I48.91 Unspecified atrial fibrillation; I10 Essential (primary) hypertension; J44.9 Chronic obstructive pulmonary disease, unspecified; I25.2 Old myocardial infarction; K21.9 Gastro-esophageal reflux disease without esophagitis; F41.9 Anxiety disorder, unspecified; F32.A Depression, unspecified; F17.200 Nicotine dependence, unspecified, uncomplicated; Z90.710 Acquired absence of both cervix and uterus; Z90.49 Acquired absence of other specified parts of digestive tract; Z98.890 Other specified postprocedural states; Z79.899 Other long term (current) drug therapy

== ENCOUNTER → 2024-08-31 | Day surgery (SDC) | payer MEDICARE ==
[~2024-08-31] VITALS: Ht 152.4 cm; Wt 61.2 kg
[~2024-08-31] MED LIST changes: +Balanced Salt Solution 500 ML OPH SCH; +Cefuroxime Sodium 5 MG in BALANCED SALT IRRIG SOLN NO.2 0.5 ML,SYRINGE, DISPOSABLE, 10 ... IO SCH; +Midazolam Hydrochloride 2 MG/2 ML VIAL IV ONE; +OFLOXACIN 0.3% 5 ML BOTTLE ONE; +OFLOXACIN 0.3% 5 ML BOTTLE OPH SCH; +PHENYLEPHRINE/KETOROLAC 4 ML in Balanced Salt Solution 500 ML OPH SCH; +POVIDONE IODINE 5% OPHTHALMIC 30 ML BOTTLE OPH ONE; +POVIDONE IODINE 5% OPHTHALMIC 30 ML BOTTLE OPH SCH; +Phenylephrine Hydrochloride 2 ML BOT OPH ONE; +Phenylephrine Hydrochloride 2 ML BOT OPH SCH; +Proparacaine Hydrochloride 15 ML BOT OPH ONE; +Proparacaine Hydrochloride 15 ML BOT OPH SCH; +SODIUM CHLORIDE 0.9% 1,000 ML IV SCH; +TROPICAMIDE 3 ML BOT OPH ONE; +TROPICAMIDE 3 ML BOT OPH SCH; +Tetracaine Hydrochloride 0.5% 4 ML BOT OPH ONE; +Tetracaine Hydrochloride 0.5% 4 ML BOT OPH SCH; +prednisoLONE acetate 1% OPHTHALMIC 5 ML BOT OPH ONE; +prednisoLONE acetate 1% OPHTHALMIC 5 ML BOT OPH SCH
[2024-08-31 13:45] VITALS: BP 119/59
[2024-08-31 15:32] VITALS: BP 172/66
[2024-08-31 15:47] VITALS: BP 163/79
[2024-08-31 16:01] VITALS: BP 172/69
== END | disposition home or self-care (01) ==
LOC: SDC 08-29 14:45
PROVIDERS: ATTEND Ophthalmology
DX: H25.812 Combined forms of age-related cataract, left eye (principal); I10 Essential (primary) hypertension; J44.9 Chronic obstructive pulmonary disease, unspecified; I25.2 Old myocardial infarction; K21.9 Gastro-esophageal reflux disease without esophagitis; F41.9 Anxiety disorder, unspecified; F32.A Depression, unspecified; Z96.651 Presence of right artificial knee joint; Z85.3 Personal history of malignant neoplasm of breast; Z85.42 Personal history of malignant neoplasm of other parts of uterus; Z85.038 Personal history of other malignant neoplasm of large intestine; Z87.891 Personal history of nicotine dependence; Z90.710 Acquired absence of both cervix and uterus; Z98.890 Other specified postprocedural states; Z79.82 Long term (current) use of aspirin; Z79.01 Long term (current) use of anticoagulants; Z79.899 Other long term (current) drug therapy

== ENCOUNTER → 2024-09-17 | Outpatient (CLI) | payer MEDICARE ==
[~2024-09-17] MED LIST changes: -Balanced Salt Solution 500 ML OPH SCH; -Cefuroxime Sodium 5 MG in BALANCED SALT IRRIG SOLN NO.2 0.5 ML,SYRINGE, DISPOSABLE, 10 ... IO SCH; -Midazolam Hydrochloride 2 MG/2 ML VIAL IV ONE; -OFLOXACIN 0.3% 5 ML BOTTLE ONE; -OFLOXACIN 0.3% 5 ML BOTTLE OPH SCH; -PHENYLEPHRINE/KETOROLAC 4 ML in Balanced Salt Solution 500 ML OPH SCH; -POVIDONE IODINE 5% OPHTHALMIC 30 ML BOTTLE OPH ONE; -POVIDONE IODINE 5% OPHTHALMIC 30 ML BOTTLE OPH SCH; -Phenylephrine Hydrochloride 2 ML BOT OPH ONE; -Phenylephrine Hydrochloride 2 ML BOT OPH SCH; -Proparacaine Hydrochloride 15 ML BOT OPH ONE; -Proparacaine Hydrochloride 15 ML BOT OPH SCH; -SODIUM CHLORIDE 0.9% 1,000 ML IV SCH; -TROPICAMIDE 3 ML BOT OPH ONE; -TROPICAMIDE 3 ML BOT OPH SCH; -Tetracaine Hydrochloride 0.5% 4 ML BOT OPH ONE; -Tetracaine Hydrochloride 0.5% 4 ML BOT OPH SCH; -prednisoLONE acetate 1% OPHTHALMIC 5 ML BOT OPH ONE; -prednisoLONE acetate 1% OPHTHALMIC 5 ML BOT OPH SCH
== END | disposition home or self-care (01) ==
LOC: CT 09-12 02:08
PROVIDERS: ATTEND Physician Assistant
DX: R91.1 Solitary pulmonary nodule (principal); I25.10 Atherosclerotic heart disease of native coronary artery without angina pectoris; N20.0 Calculus of kidney; F17.211 Nicotine dependence, cigarettes, in remission

== ENCOUNTER → 2024-09-28 | Day surgery (SDC) | payer MEDICARE ==
[~2024-09-28] VITALS: Ht 152.4 cm; Wt 61.2 kg
[~2024-09-28] MED LIST changes: +Balanced Salt Solution 500 ML OPH SCH; +Cefuroxime Sodium 5 MG in BALANCED SALT IRRIG SOLN NO.2 0.5 ML,SYRINGE, DISPOSABLE, 10 ... IO SCH; +Midazolam Hydrochloride 2 MG/2 ML VIAL IV ONE; +OFLOXACIN 0.3% 5 ML BOTTLE ONE; +OFLOXACIN 0.3% 5 ML BOTTLE OPH SCH; +PHENYLEPHRINE/KETOROLAC 4 ML in Balanced Salt Solution 500 ML OPH SCH; +POVIDONE IODINE 5% OPHTHALMIC 30 ML BOTTLE OPH SCH; +Phenylephrine Hydrochloride 2 ML BOT OPH ONE; +Phenylephrine Hydrochloride 2 ML BOT OPH SCH; +Proparacaine Hydrochloride 15 ML BOT OPH ONE; +Proparacaine Hydrochloride 15 ML BOT OPH SCH; +SODIUM CHLORIDE 0.9% 1,000 ML IV SCH; +TROPICAMIDE 3 ML BOT OPH ONE; +TROPICAMIDE 3 ML BOT OPH SCH; +Tetracaine Hydrochloride 0.5% 4 ML BOT OPH ONE; +Tetracaine Hydrochloride 0.5% 4 ML BOT OPH SCH; +prednisoLONE acetate 1% OPHTHALMIC 5 ML BOT OPH ONE; +prednisoLONE acetate 1% OPHTHALMIC 5 ML BOT OPH SCH
[2024-09-28 08:55] VITALS: BP 142/53
[2024-09-28 09:33] VITALS: BP 133/67
[2024-09-28 09:48] VITALS: BP 110/59
[2024-09-28 10:03] VITALS: BP 112/63
== END | disposition home or self-care (01) ==
LOC: SDC 09-23 11:00
PROVIDERS: ATTEND Ophthalmology
DX: H25.11 Age-related nuclear cataract, right eye (principal); I12.9 Hypertensive chronic kidney disease with stage 1 through stage 4 chronic kidney disease, or unspecified chronic kidney disease; N18.31 Chronic kidney disease, stage 3a; J44.1 Chronic obstructive pulmonary disease with (acute) exacerbation; I48.20 Chronic atrial fibrillation, unspecified; E46 Unspecified protein-calorie malnutrition; I21.4 Non-ST elevation (NSTEMI) myocardial infarction; F17.210 Nicotine dependence, cigarettes, uncomplicated; F10.90 Alcohol use, unspecified, uncomplicated; Z90.710 Acquired absence of both cervix and uterus; Z90.49 Acquired absence of other specified parts of digestive tract; Z98.890 Other specified postprocedural states; Z79.82 Long term (current) use of aspirin; Z79.899 Other long term (current) drug therapy

== ENCOUNTER → 2025-02-06 | Outpatient (CLI) | payer MEDICARE ==
[~2025-02-06] MED LIST changes: -Balanced Salt Solution 500 ML OPH SCH; -Cefuroxime Sodium 5 MG in BALANCED SALT IRRIG SOLN NO.2 0.5 ML,SYRINGE, DISPOSABLE, 10 ... IO SCH; -Midazolam Hydrochloride 2 MG/2 ML VIAL IV ONE; -OFLOXACIN 0.3% 5 ML BOTTLE ONE; -OFLOXACIN 0.3% 5 ML BOTTLE OPH SCH; -PHENYLEPHRINE/KETOROLAC 4 ML in Balanced Salt Solution 500 ML OPH SCH; -POVIDONE IODINE 5% OPHTHALMIC 30 ML BOTTLE OPH SCH; -Phenylephrine Hydrochloride 2 ML BOT OPH ONE; -Phenylephrine Hydrochloride 2 ML BOT OPH SCH; -Proparacaine Hydrochloride 15 ML BOT OPH ONE; -Proparacaine Hydrochloride 15 ML BOT OPH SCH; -SODIUM CHLORIDE 0.9% 1,000 ML IV SCH; -TROPICAMIDE 3 ML BOT OPH ONE; -TROPICAMIDE 3 ML BOT OPH SCH; -Tetracaine Hydrochloride 0.5% 4 ML BOT OPH ONE; -Tetracaine Hydrochloride 0.5% 4 ML BOT OPH SCH; -prednisoLONE acetate 1% OPHTHALMIC 5 ML BOT OPH ONE; -prednisoLONE acetate 1% OPHTHALMIC 5 ML BOT OPH SCH
== END | disposition home or self-care (01) ==
LOC: ORTHO 02:20
PROVIDERS: ATTEND Orthopaedic Surgery
DX: M19.041 Primary osteoarthritis, right hand (principal); M79.641 Pain in right hand

== ENCOUNTER → 2025-03-02 | Day surgery (SDC) | payer MEDICARE ==
[2025-03-01 11:37] LABS: BUN 22 mg/dl (9-23)
[~2025-03-02] VITALS: Ht 152.4 cm; Wt 61.2 kg
[~2025-03-02] MED LIST changes: +ACETAMINOPHEN 100 ML IV ONE; +Lactated Ringer's Solution 1,000 ML IV ONE; +Lidocaine Hydrochloride 30 ML VIAL ONE; +Ondansetron Hydrochloride 4 MG/2 ML VIAL IV ONE; +PROPOFOL 200 MG/20 ML VIAL IV ONE; +ceFAZolin sodium 1GM/10ML IV SCH; +ceFAZolin sodium/sodium chlor 10 ML IV ONE; +ePHEDrine Sulfate 25 MG/5 ML SYRINGE IV ONE
[2025-03-02 08:24] VITALS: BP 111/63
[2025-03-02 09:59] VITALS: BP 155/69
[2025-03-02 10:14] VITALS: BP 147/72
[2025-03-02 10:23] VITALS: BP 153/61
== END | disposition home or self-care (01) ==
LOC: SDC 02-28 09:30
PROVIDERS: ATTEND Orthopaedic Surgery
DX: G56.01 Carpal tunnel syndrome, right upper limb (principal); M65.341 Trigger finger, right ring finger; M65.351 Trigger finger, right little finger; I25.2 Old myocardial infarction; I10 Essential (primary) hypertension; E78.00 Pure hypercholesterolemia, unspecified; F17.200 Nicotine dependence, unspecified, uncomplicated; K21.9 Gastro-esophageal reflux disease without esophagitis; Z98.890 Other specified postprocedural states; Z90.710 Acquired absence of both cervix and uterus; Z79.899 Other long term (current) drug therapy

== ENCOUNTER → 2025-05-02 | Day surgery (SDC) | payer MEDICARE ==
[2025-05-01 15:54] LABS: BUN 18 mg/dl (9-23)
[~2025-05-02] VITALS: Ht 154.9 cm; Wt 61.2 kg
[~2025-05-02] MED LIST changes: -ACETAMINOPHEN 100 ML IV ONE; +BUPIVACAINE 0.5% 30 ML SINGLE DOSE VIAL IJ ONE; -Lactated Ringer's Solution 1,000 ML IV ONE; +Lidocaine Hydrochloride 2% 5 ML SDV IM ONE; -Ondansetron Hydrochloride 4 MG/2 ML VIAL IV ONE; -ceFAZolin sodium 1GM/10ML IV SCH; -ePHEDrine Sulfate 25 MG/5 ML SYRINGE IV ONE
[2025-05-02 10:15] VITALS: BP 146/60
[2025-05-02 10:30] VITALS: BP 112/58
[2025-05-02 10:45] VITALS: BP 123/67
== END | disposition home or self-care (01) ==
LOC: SDC 04-28 10:15
PROVIDERS: ATTEND Orthopaedic Surgery
DX: G56.02 Carpal tunnel syndrome, left upper limb (principal); I10 Essential (primary) hypertension; M19.90 Unspecified osteoarthritis, unspecified site; C50.919 Malignant neoplasm of unspecified site of unspecified female breast; I25.2 Old myocardial infarction; E78.00 Pure hypercholesterolemia, unspecified; J44.9 Chronic obstructive pulmonary disease, unspecified; K21.9 Gastro-esophageal reflux disease without esophagitis; F41.9 Anxiety disorder, unspecified; F32.A Depression, unspecified; Z98.890 Other specified postprocedural states; Z90.710 Acquired absence of both cervix and uterus; Z79.899 Other long term (current) drug therapy